=== PATIENT | male | born 1955 | race Caucasian/White ===

== ENCOUNTER → 2017-03-08 | Outpatient (CLI) | payer OTHER ==
[~2017-03-08] MED LIST: ALBUTEROL17 GM; ALBUTEROL17 GM INH; ASPIRIN PO; ASPIRIN81 M2 PO; COUMADIN PO; FLEXERIL10 MG PO; IBUPROFEN800 MG PO; LEVOTHYROXINE75 MCG PO; LIPITOR PO; LORTAB 7.5-5001 TAB PO; METFORMIN PO; NITROGYLCERIN; NORVASC; PLAVIX PO; RANITIDINE HCL150 M1 PO; SYMBICORT INH; SYNTHROID PO; ULTRAM PO; ZANTAC; ZESTRIL10 M2 PO
--- NOTE | ~2017-03-08 | EE ---
Unit #: [id number] #: [id number] Patient: ALPA VEGA [id number] [facility]. [address] [address] [id number] MR#: [id number] NAME: ALPA VEGA. : 1955 SEX: M STUDY DATE/TIME: UNIT: CEEG ROOM: STUDY DESCRIPTION: EEG Attending Physician: Elkin Wheeler M.D. Referring Physician: Elkin Wheeler M.D. Primary Care Physician: Colt Epps M.D. NEURODIAGNOSTICS REPORT EXAM EEG CHIEF COMPLAINT Syncope. DESCRIPTION EEG was obtained in the awake and drowsy states using the 10-20 [employer] Montage System with photic stimulation. EEG showed well organized 8 Hz range background activity from posterior regions which was symmetric between the hemispheres. There were no epileptiform discharges present and there were no focal signs. There was no response to photic stimulation. IMPRESSION Borderline abnormal EEG due to absence of photic stimulation response. However, there is no evidence for increased seizure tendency or focal findings on this EEG. Dictated by... Anup Pierce/marquita TD: 03/09/2017 07:28 JOB #: [id number] NEURODIAGNOSTICS REPORT Page 1 of 1 X Luciana Miguel MD NEURODIAGNOSTICS REPORT
== END | disposition home or self-care (01) ==
LOC: CEEG 08:20
DX: R55 Syncope and collapse (principal); R94.31 Abnormal electrocardiogram [ECG] [EKG]
CPT/HCPCS: 95816